=== PATIENT | male | born 2000 | race Caucasian/White ===

== ENCOUNTER 2023-01-19 08:39 | Emergency (ER) | payer BC ==
[~2023-01-19] VITALS: Ht 180.3 cm; Wt 145.2 kg
[2023-01-19 11:04] LABS: Influenza A, PCR NEGATIVE (NEGATIVE); Influenza B, PCR NEGATIVE (NEGATIVE); Resp Syncytial Virus, PCR NEGATIVE (NEGATIVE); SARS-Cov-2 (COVID-19) PCR, MMC NEGATIVE (NEGATIVE)
[2023-01-19 11:30] VITALS: BP 138/67
[2023-01-19] MEDS ORDERED: PRED20 PO (14:44)
== END 2023-01-19 14:53 | disposition home or self-care (01) ==
LOC: ER 08:39
PROVIDERS: Student in an Organized Health Care Education/Training Program
DX: J45.901 Unspecified asthma with (acute) exacerbation (principal); Z20.822 Contact with and (suspected) exposure to COVID-19
CPT/HCPCS: 0241U; 71046; 93005; 93010; 94640; 94644; 94645; 94664; J2930; J3475; J7030